=== PATIENT | female | born 1980 | race Caucasian/White ===

== ENCOUNTER → 2023-12-20 16:28 | Outpatient (REF) | payer OTHER, SELFPAY | LOC: WDC 16:28 | PROVIDERS: ATTENDING PHYSICIAN Obstetrics & Gynecology Gynecology; FAMILY PHYSICIAN Family Medicine | DX: Z12.31 Encounter for screening mammogram for malignant neoplasm of breast (principal) | CPT/HCPCS: 77063; 77067 ==

== ENCOUNTER 2024-02-26 06:21 | Inpatient (IN) | payer OTHER, SELFPAY ==
[2024-02-26] VITALS (9 sets, daily range): BP systolic 124–144; BP diastolic 82–95; BMI 42.0
--- NOTE | 2024-02-26 04:24 | ED.GENMED ---
History of Present Illness
<JOS Naranjo - Last Filed: 02/26/24 04:37>
General
Chief Complaint: Chest Problem
Source: patient
Exam Limitations: none
Time Seen by Provider: 02/26/24 04:00
Travel History
Have you had any contact with someone who has COVID-19?: No
Do you have any symptoms of coronavirus? Fever > 100 degrees, chills, cough, shortness of breath, sore throat, loss of taste or smell, muscle aches, or headache?: No
History of Present Illness
History of Present Illness:
44 YO F with a PMH of ablation 05/2020, HBP, and asthma presenting here today with complaints of constant mid-sternal chest pain x 1.5 hours. Pt reports the CP started at 3 AM, suddenly waking her up from her sleep. She did not take any medication
before getting to the hospital. She describes the chest pain as sharp with radiation to the left side of her neck, right shoulder, and right side of her back. Pt states sitting up does not make the pain better. Pt admits to associated diaphoresis
over her forehead and SOB. She reports pain with deep breaths. She also complains of some indigestion.
Positive family history of [place] in her father who and HBP and inappropriate sinus tachycardia in her mother (and herself).
Denies N,V or diarrhea. Denies smoking, alcohol, and drug use. Denies abdominal pain.
Past History
<JOS Naranjo - Last Filed: 02/26/24 04:37>
Past History
ED Past Medical History: HTN, Valvular disease (mild mitrla valve regurgitation) and Other (Migraines)
ED Past Surgical History: Appendectomy
Social History
Tobacco: Non-smoker
Alcohol: Occasional
Personal:
Living: with family
Employment: Employed
Family History
Family History: Hypertension; Negative Diabetes, Early CAD, CAD, Asthma or Cancer
Review of Systems
<ST Jose AME - Last Filed: 02/26/24 04:37>
Review of Systems
Constitutional: Reports no symptoms
EENT: Reports no symptoms
Respiratory: Reports trouble breathing
Cardiac: Reports chest pain and diaphoresis
ABD/GI: Reports no symptoms
: Reports no symptoms
Musculoskeletal: Reports no symptoms
Skin: Reports no symptoms
Neurological: Reports no symptoms
Phy Exam
<ST Jose AME - Last Filed: 02/26/24 04:37>
Physical Exam
Physical Exam:
Tachycardic, Breath sounds are equal b/l, (-) abdominal pain
General Physical Exam
General Presentation: mild distress
General age: appears stated age
General Habitus: normal
General Mental: alert
Cardiovascular Exam
Cardiovascular Exam: tachycardia
Pulmonary Exam
Pulmonary Exam: lungs clear, no rales, no crackles and no wheezing
Cough: no cough
Gastrointestinal Exam
Gastrointestinal Exam: non tender, soft and non distended
Musculoskeletal Exam
Musculoskeletal Exam: neck pain
Psychiatric Exam
Psychiatric Exam: normal mood/affect
Scores
<Caleb Savage DO - Last Filed: 02/26/24 06:00>
PE Wells Score
Symptoms of DVT: No
No alternative diagnosis better explains the illness: No
Tachycardia with pulse > 100: No
Immobilization (>=3 days) or surgery within previous 4 weeks: No
Prior history of DVT or pulmonary embolism: No
Presence of hemoptysis: No
Presence of malignancy: No
Pulmonary Embolism Risk Score: 0
Probability of PE: Pt is low risk
Course
<JOS Naranjo - Last Filed: 02/26/24 04:37>
Orders/Labs/Results
Orders:
Orders
02/26/24 03:58
Electrocardiogram (*1) Urgent
Reason for Study: Other
Other Reason for Exam: RIGHT CHEST PAIN
02/26/24 03:59
EKG- Treatment ONCE
02/26/24 04:00
Test Result ONCE
02/26/24 04:22
Complete Blood Count/With Diff Urgent
Comprehensive Metabolic Panel Urgent
D-Dimer Urgent
HCG, Serum Qualitative Screen Urgent
NT-proBNP Urgent
PTT Urgent
Prothrombin Time Urgent
Troponin I Urgent
02/26/24 05:[address] See Dose Instructions PO NOW STA
Discontinue all Active Warfarin orders?: Yes
02/26/24 05:[address] Non Medication Order As Directed
Physician Order: PTT 6 hours after initial start of Heparin infusion
02/26/24 05:45
Heparin 32031 Units/250 ml 25,000 units in 250 ml IV PER PROTOCOL
Weight to be used for heparin protocol in kilograms (kg):: 118
Protocol:: DVT/PE
PTT Goal Range to be used:: PTT 73 to 111 seconds
Order type:: Initial
INITIAL Infusion Dose (UNITS/KG/hr) & then follow protocol:: 18 units/kg/hr
Infusion Dose in UNITS/hr & then follow protocol (UNITS/hr):: 2,000
INFUSION RATE in mL/hr & then follow protocol (mL/hr):: 20
For DVT/PE algorithm, re-bolus for low PTT?: Yes
PTT less than or equal to 64 seconds:: Re-bolus 80 units/kg (max 10,000units). Increase by 500 units/hr
(+ 5mL/hr)
PTT 64.1 to 72.9 seconds:: Re-bolus 40 units/kg (max 5,000 units). Increase by 200 units/hr
(+ 2mL/hr)
PTT 73 to 111 seconds:: Target Range. No change in rate.
PTT 111.1 to 130.9 seconds:: Decrease rate by 200 units/hr (- 2 mL/hr)
PTT 131 to 199.9 seconds:: HOLD for 1 hr. Then decrease by 400 units/hr (- 4mL/hr)
PTT greater than or equal to 200 seconds:: HOLD for 2 hrs & Notify Provider. Then decrease by 500 units/hr
(- 5mL/hr)
Lab follow-up:: Each change, PTT q6h until 2 consecutive are therapeutic. Then
PTT daily.
02/26/24 06:[address] See Dose Instructions IV DIRECTED
Abnormal Lab Results
02/26/24
04:22
Hct 35.5 L %
(37.0-47.0)
MPV 10.6 H fL
(7.4-10.4)
D-Dimer 1.23 H ug/mlFEU
(0.00-0.50)
BUN 23 H mg/dl
(7-17)
Creatinine 0.5 L mg/dL
(0.6-1.0)
02/26/24 04:22
02/26/24 04:22
Vital Signs
Initial and Last Documented VS:
Initial Vital Signs
Temp Pulse Resp BP Pulse Ox
98 F 78 22 144/82 99
02/26/24 03:54 02/26/24 03:54 02/26/24 03:54 02/26/24 03:54 02/26/24 03:54
Last Documented Vital Signs
Temp Pulse Resp BP Pulse Ox
98 F 78 22 144/82 99
02/26/24 03:54 02/26/24 03:54 02/26/24 03:54 02/26/24 03:54 02/26/24 04:28
<Caleb Savage DO - Last Filed: 02/26/24 06:00>
Orders/Labs/Results
Orders:
Orders
02/26/24 03:58
Electrocardiogram (*1) Urgent
Reason for Study: Other
Other Reason for Exam: RIGHT CHEST PAIN
02/26/24 03:59
EKG- Treatment ONCE
02/26/24 04:00
Test Result ONCE
02/26/24 04:22
Complete Blood Count/With Diff Urgent
Comprehensive Metabolic Panel Urgent
D-Dimer Urgent
HCG, Serum Qualitative Screen Urgent
NT-proBNP Urgent
PTT Urgent
Prothrombin Time Urgent
Troponin I Urgent
02/26/24 05:[address] See Dose Instructions PO NOW STA
Discontinue all Active Warfarin orders?: Yes
02/26/24 05:[address] Non Medication Order As Directed
Physician Order: PTT 6 hours after initial start of Heparin infusion
02/26/24 05:45
Heparin 34137 Units/250 ml 25,000 units in 250 ml IV PER PROTOCOL
Weight to be used for heparin protocol in kilograms (kg):: 118
Protocol:: DVT/PE
PTT Goal Range to be used:: PTT 73 to 111 seconds
Order type:: Initial
INITIAL Infusion Dose (UNITS/KG/hr) & then follow protocol:: 18 units/kg/hr
Infusion Dose in UNITS/hr & then follow protocol (UNITS/hr):: 2,000
INFUSION RATE in mL/hr & then follow protocol (mL/hr):: 20
For DVT/PE algorithm, re-bolus for low PTT?: Yes
PTT less than or equal to 64 seconds:: Re-bolus 80 units/kg (max 10,000units). Increase by 500 units/hr
(+ 5mL/hr)
PTT 64.1 to 72.9 seconds:: Re-bolus 40 units/kg (max 5,000 units). Increase by 200 units/hr
(+ 2mL/hr)
PTT 73 to 111 seconds:: Target Range. No change in rate.
PTT 111.1 to 130.9 seconds:: Decrease rate by 200 units/hr (- 2 mL/hr)
PTT 131 to 199.9 seconds:: HOLD for 1 hr. Then decrease by 400 units/hr (- 4mL/hr)
PTT greater than or equal to 200 seconds:: HOLD for 2 hrs & Notify Provider. Then decrease by 500 units/hr
(- 5mL/hr)
Lab follow-up:: Each change, PTT q6h until 2 consecutive are therapeutic. Then
PTT daily.
02/26/24 06:[address] See Dose Instructions IV DIRECTED
Abnormal Lab Results
02/26/24
04:22
Hct 35.5 L %
(37.0-47.0)
MPV 10.6 H fL
(7.4-10.4)
D-Dimer 1.23 H ug/mlFEU
(0.00-0.50)
BUN 23 H mg/dl
(7-17)
Creatinine 0.5 L mg/dL
(0.6-1.0)
02/26/24 04:22
02/26/24 04:22
Vital Signs
Initial and Last Documented VS:
Initial Vital Signs
Temp Pulse Resp BP Pulse Ox
98 F 78 22 144/82 99
02/26/24 03:54 02/26/24 03:54 02/26/24 03:54 02/26/24 03:54 02/26/24 03:54
Last Documented Vital Signs
Temp Pulse Resp BP Pulse Ox
98 F 78 22 144/82 99
02/26/24 03:54 02/26/24 03:54 02/26/24 03:54 02/26/24 03:54 02/26/24 04:28
<JOS Naranjo - Last Filed: 05/28/24 04:37>
MDM/Problems Addressed
Differential Diagnosis Includes:
STEMI vs. NSTEMI, Pericarditis, Vasospastic angina, Unstable vs. stable angina
MDM/Problems Addressed:
Chest pain x 1.5 hour
Chronic conditions affecting care: HTN and Asthma
<JOS Naranjo - Last Filed: 02/26/24 04:37>
*Critical Care Note
Total Time (30-74mins, 75-104mins- exclusive of procedures): Not Applicable
ED Attending Note
<JOS Naranjo - Last Filed: 02/26/24 04:37>
-
Portions of this chart may have been created with voice recognition software.� Occasional wrong word or��sound alike� substitutions may have occurred due to the inherent limitations of voice recognition software.
<Caleb Savage DO - Last Filed: 02/26/24 06:00>
ED Attending Note
Patient seen and examined by attending physician: Yes
I performed the substantive portion of visit, reviewed & personally made and approve the management plan that is documented in note by myself or SIMEON.: Yes
ED Attending Note:
44-year-old female presents with sudden onset right-sided chest pain with accompanying shortness of breath. She states that awakened her from sleep 3 AM. Patient states that she did not take any medications to alleviate or exacerbate her symptoms.
Patient reports that the pain radiates to the left side of her neck and through to her back. She reports nothing she has done alleviated or exacerbated her pain. Patient did feel some diaphoresis when her shortness of breath was at its worst.
Patient was seen in conjunction with the PA student. I have reviewed and agree with the history and treatment plan presented. On my independent physical exam, patient is awake, alert, and oriented x3. Heart is regular rate and rhythm. Lungs are
clear to auscultation bilaterally. There is no chest wall tenderness. Abdomen is soft nontender nondistended. Negative Soriano sign. Negative for Law's point tenderness. Moves all 4 extremities. Skin is warm and dry at time of exam.
Vital signs are stable. Patient not hypoxic
Nursing note reviewed. I agree with nursing documentation up to this point in time.
Home Meds and allergies reviewed.
NUMBER AND COMPLEXITY OF PROBLEMS ADDRESSED AT THE ENCOUNTER
� Chronic conditions affecting care: Hypertension, mitral valve regurg, migraines,
� Acute Exacerbation and/or Progression of Chronic Illness: This is an acute problem
� Differential Diagnosis includes: PE, pneumonia, musculoskeletal pain, non-STEMI
AMOUNT AND/OR COMPLEXITY OF DATA TO BE REVIEWED AND ANALYZED
I performed an independent evaluation of the following and my interpretation is:
EKG: Normal sinus rhythm rate of 78 with normal intervals, normal axis. No evidence of acute ischemia present. When compared with previous EKG, sinus rhythm has replaced atrial fibrillation.
CT: Patient gets anaphylaxis from IV dye. She cannot sustain contrast to get a PE study.
X-rays:
Ultrasound:
Laboratory Studies: D-dimer is elevated.
Other:
Review of other/old records:
Clinical information was obtained by an independent historian:
Prescriptions/Medications Considered but not given:
Further testing considered but not performed:
RISK OF COMPLICATIONS AND/OR MORBIDITY OR MORTALITY OF PATIENT MANAGEMENT
Social determinants of health affecting care: Good Social Support
Discussion with other providers: Hospitalist for admission. She will get prophylactically heparinized for high index of suspicion for pulmonary embolism. VQ scan pending
Escalation of care including admission/observation vs risk of discharge considered:
CRITICAL CARE NOTE:
Total Time (exclusive of procedures):
Update:
Discharge Plan
Departure
Patient Disposition: Admit
Date of Disposition: 02/26/24
Time of Disposition: 05:41
Presentation/result/management discussed w/ accepting MD/DO: Hospitalist
Condition: Good
Discharge Problem:
Acute dyspnea, Chest pain, D-dimer, elevated
Prescriptions:
No Action
diphenhydramine HCl [Benadryl] 25 MG capsule
50 mg PO PRN PRN (Reason: allergic reactions)
ibuprofen 600 MG tablet
600 mg PO Q6HPRN PRN (Reason: moderate pain/cramps) Qty: 0 0RF
cyanocobalamin (vitamin B-12) 1,000 MCG tablet
1,000 mcg PO DAILY
epinephrine [EpiPen] 0.3 MG/0.3/SYRINGE auto-injector
0.3 mg IM PRN PRN (Reason: allergic reaction)
loratadine 10 MG tablet
10 mg PO DAILY
folic acid 0.8 MG capsule
0.8 mg PO DAILY
cholecalciferol (vitamin D3) 1,000 UNITS tablet
1,000 units PO DAILY
magnesium oxide 500 MG capsule
500 mg PO DAILY
turmeric root extract 500 MG capsule
1,000 mg PO DAILY
Yamilex 200 MG Tab
200 mg PO DAILY
Iron 18 MG Tab
18 mg PO DAILY
Referrals:
Jacy Simpson MD [Family Provider] -
Interventions
Interventions:
*Risk Screen - Suicide Last Done: 02/26/24 03:54
*General Assessment Last Done: 02/26/24 04:30
*Neglect/Abuse Screening Last Done: 02/26/24 03:54
*ED COVID-19 Vaccine History Last Done: 02/26/24 04:29
ED- Cardiac Assessment Last Done: 02/26/24 04:26
ED- Pulmonary Assessment Last Done: 02/26/24 04:28
Discharge Date and Time
Print Language: KISWAHILI
[2024-02-26 04:28] LABS: % Basophils 0.4 % (0-2); % Immature Granulocytes 0.1 % (0-0.5); % Lymphocytes 23.5 % (20.5-51.1); % Monocytes 7.5 % (1.7-9.3); % Neutrophils 64.5 % (42.2-75.2); Absolute Eosinophils 0.3 10^3/uL (0-0.7); Absolute Lymphocytes 1.9 10^3/uL (1.2-3.4); Absolute Monocytes 0.6 10^3/uL (0.1-0.6); Absolute Neutrophils 5.2 10^3/uL (1.4-6.5); Hematocrit 35.5 % (37.0-47.0); Hemoglobin 12.7 g/dL (12.0-16.0); Mean Corp Hgb Conc. 35.8 g/dL (33.0-37.0); Mean Corpuscular Hgb 30.2 pg (27.0-31.0); Mean Corpuscular Volume 84.3 fL (81.0-99.0); Mean Platelet Volume 10.6 fL (7.4-10.4); Nucleated Red Blood Cells % 0 %; Platelet Count 223 10^3/uL (130-400); Red Blood Cell Count 4.21 10^6/uL (4.20-5.40); Red Cell Dist. Width 12.8 % (11.5-14.5)
[2024-02-26 04:41] LABS: HCG, Serum Qualitative Screen Negative
[2024-02-26 04:43] LABS: INR 1.07; PT 13.7 Sec (11.4-14.6)
[2024-02-26 04:44] LABS: ALT (SGPT) 16 U/L (0-35); APTT 28.8 Sec (23.4-35.0); AST (SGOT) 18 U/L (14-36); Albumin 3.6 g/dl (3.5-5.0); Alkaline Phosphatase 71 U/L (38-126); Blood Urea Nitrogen 23 mg/dl (7-17); Calcium 9.2 mg/dl (8.4-10.2); Carbon Dioxide 23 mmol/L (22-30); Chloride 105 mmol/L (98-107); Estimated Creatinine Clearance > 125 ml/min; Glucose 93 mg/dl (70-99); Potassium 3.9 mmol/L (3.5-5.1); Sodium 136 mmol/L (135-145); Total Bilirubin 0.6 mg/dl (0.2-1.3); Total Protein 6.4 g/dl (6.3-8.2); eGFR > 60.00
[2024-02-26 04:46] LABS: D-Dimer 1.23 ug/mlFEU (0.00-0.50)
[2024-02-26 04:53] LABS: NT-proBNP 179 pg/ml; Troponin I < 0.012 ng/ml
--- NOTE | 2024-02-26 06:03 | HPS.HSE ---
Family Physician
-
Family Physician: Jacy Simpson
Chief Complaint
-
CP
History of Present Illness
44F PMH of ablation 05/2020, HTN, Asthma HX numerous allergy including anaphylaxin vs ZEN reaction to IV I2 contrast as childhood seen at ER for evaluation of CP
CP
- abrupt onset that woke her up from the sleep
- at Rt sided and mid sternum
- worse with deep breathing
- No prior HX DVT
- Elevated D Dimer
- HX B/l THR >1 yr ago
Reports b/l thigh pain
No asymmetrical swelling
Medical History
Past Medical History
Past Medical History: Reports HTN and Other ( Valvular disease (mild mitrla valve regurgitation) and Other (Migraines)
Past Surgical History: Reports Cardiac (ablation )
Social History
Tobacco: Non-smoker
Alcohol: Occasional
Personal:
Living: With Family
Family History
Family History: Not pertinent
Allergies / Home Medications
Allergies reflects when Allergies were last updated in [facility].
Home Medications with original date entered in [facility]
Allergy/Medication List:
Allergies
Allergy/AdvReac Type Severity Reaction Status Date / Time
avocado Allergy Anaphylaxis Verified 02/26/24 03:58
banana Allergy Anaphylaxis Verified 02/26/24 03:58
carrot Allergy Anaphylaxis Verified 02/26/24 03:58
cefaclor [From Ceclor] Allergy Anaphylaxis Verified 02/26/24 03:58
celery Allergy Throat Verified 02/26/24 03:58
swelling
cephalexin Allergy Anaphylaxis Verified 02/26/24 03:58
Cephalosporins Allergy Anaphylaxis Verified 02/26/24 03:58
erythromycin base Allergy Anaphylaxis Verified 02/26/24 03:58
iodine [Iodine] Allergy Anaphylaxis Verified 02/26/24 03:58
latex [Latex] Allergy Swelling Verified 02/26/24 03:58
Penicillins Allergy Anaphylaxis Verified 02/26/24 03:58
Shellfish *RETIRED-06/18/12 Allergy Anaphylaxis Verified 02/26/24 03:58
[Shellfish]
Sulfa (Sulfonamide Allergy Anaphylaxis Verified 02/26/24 03:58
Antibiotics)
all red fruit Allergy Anaphylaxis Uncoded 02/26/24 03:58
apples Allergy Mouth Uncoded 02/26/24 03:58
Swelling,
localized
swelling
with
contact
berries Allergy Tongue Uncoded 02/26/24 03:58
Swelling
cherries Allergy tongue Uncoded 02/26/24 03:58
swelling-
localized
swelling
with
contact
figs Allergy Anaphylaxis Uncoded 02/26/24 03:58
MULTIPLE FRUITS Allergy Diarrhea Uncoded 02/26/24 03:58
NUTS Allergy Anaphylaxis Uncoded 02/26/24 03:58
peanuts Allergy Anaphylaxis Uncoded 02/26/24 03:58
PICKELS Allergy Swelling Uncoded 02/26/24 03:58
POTATO Allergy Swelling Uncoded 02/26/24 03:58
SEAFOOD Allergy Anaphylaxis Uncoded 02/26/24 03:58
TOMATOE DERIVATIVES Allergy Anaphylaxis Uncoded 02/26/24 03:58
tomatoes Allergy Anaphylaxis Uncoded 02/26/24 03:58
tree nuts Allergy Anaphylaxis Uncoded 02/26/24 03:58
Home Medications
diphenhydramine HCl 25 mg capsule (Benadryl) 50 mg PO PRN PRN allergic reactions 09/29/14
ibuprofen 600 mg tablet 600 mg PO Q6HPRN PRN moderate pain/cramps ##0 10/01/14
Yamilex 200 mg PO DAILY 04/29/20
Iron 18 mg PO DAILY 04/29/20
cholecalciferol (vitamin D3) 25 mcg (1,000 unit) tablet 1,000 units PO DAILY 04/29/20
cyanocobalamin (vitamin B-12) 1,000 mcg tablet 1,000 mcg PO DAILY 04/29/20
epinephrine 0.3 mg/0.3 mL injection, auto-injector (EpiPen) 0.3 mg IM PRN PRN allergic reaction 04/29/20
folic acid 0.8 mg capsule 0.8 mg PO DAILY 04/29/20
loratadine 10 mg tablet 10 mg PO DAILY 04/29/20
magnesium oxide 500 mg capsule 500 mg PO DAILY 04/29/20
turmeric root extract 500 mg capsule 1,000 mg PO DAILY 04/29/20
Review of Systems
-
Constitutional: Reports No Symptoms
EENT: Reports No Symptoms
Respiratory: Reports No Symptoms; Denies Cough or Trouble Breathing
Cardiac: Reports Chest Pain; Denies Diaphoresis or Palpitations
Abdomen/GI: Reports No Symptoms
: Reports No Symptoms
Musculoskeletal: Reports No Symptoms
Skin: Reports No Symptoms
Neurological: Reports No Symptoms
Endocrine: Reports No Symptoms
Hematologic/Lymphatic: Reports No Symptoms
Psych: Reports No Symptoms
Physical Exam
Vital Signs
Vital Signs
Temp Pulse Resp BP Pulse Ox
98 F 74 21 140/94 99
02/26/24 03:54 02/26/24 05:45 02/26/24 05:45 02/26/24 05:00 02/26/24 05:45
Physical Exam
General: Well Developed, No Apparent Distress, Comfortable and Conversant
HEENT: NormoCephalic and Moist mucous membranes
Respiratory: Clear
Cardiac: S1/S2 and Regular Rhythm
GI: Soft, Non Tender, Non Distended and Normal Bowel Sounds
Musculoskeletal: No Edema
Skin: Warm and Dry
Neuro: AO x 3
Psych: Calm
Laboratory Results
-
02/26/24 04:22
02/26/24 04:22
Laboratory Results
PT 13.7 Sec (11.4-14.6) 02/26/24 04:22
INR 1.07 02/26/24 04:22
APTT 28.8 Sec (23.4-35.0) 02/26/24 04:22
Total Bilirubin 0.6 mg/dl (0.2-1.3) 02/26/24 04:22
AST 18 U/L (14-36) 02/26/24 04:22
ALT 16 U/L (0-35) 02/26/24 04:22
Alkaline Phosphatase 71 U/L (38-126) 02/26/24 04:22
Troponin I < 0.012 ng/ml 02/26/24 04:22
Data Reviewed
-
Lab Data: Labs Reviewed by me
Old Records: Reviewed
Impression/Plan
-
Reviewed VS: afebrile HR 78 BP 145/80 RR 22 POx 99 %
Wt 118 kg
PE Wells Score
Symptoms of DVT: No
No alternative diagnosis better explains the illness: No
Tachycardia with pulse > 100: No
Immobilization (>=3 days) or surgery within previous 4 weeks: No
Prior history of DVT or pulmonary embolism: No
Presence of hemoptysis: No
Presence of malignancy: No
Pulmonary Embolism Risk Score: 0
Probability of PE: Pt is low risk
Data
unremarkable CBC
unremarkable CMP
DD 1.23
NEG TPNI
pro BNP 179
EKG:
NORMAL SINUS RHYTHM
LOW VOLTAGE QRS
CANNOT RULE OUT ANTERIOR INFARCT , AGE UNDETERMINED
ABNORMAL ECG
WHEN COMPARED WITH ECG OF 04-APR-2018 22:19,
SINUS RHYTHM HAS REPLACED ATRIAL FIBRILLATION
VENT. RATE HAS DECREASED BY 39 BPM
NONSPECIFIC T WAVE ABNORMALITY NO LONGER EVIDENT IN LATERAL LEADS
ASSESSMENT & PLAN
Acute pleuritic quality CP
Significantly elevated D Dimer of unclear significance
HX Anaphylaxis with Iodine contrast and shell fish
- PE Well score: low probability
- VQ scan
- US Legs
- Empiric Heparin gtt
- Held NSAIDs for now
- Pul consult
Morbid obesity - class II
HX ablation 05/2020
hi BP but not on any meds
HX Asthma
DVT Px: Heparin gtt
Code: Full
IP TLM
[2024-02-26] MEDS: HEPARIN 25000 UNITS/250 ML IV (07:00)
[2024-02-26] MEDS: INDERAL 20 MG PO (09:55)
--- NOTE | 2024-02-26 11:03 | CM ---
Chart reviewed. Patient is independent of ADLS, lives with her children in a 3 [address], 2 SONI, 0 DME. Patient currently with no discharge needs. Plan is for the patient to return home. CM to follow
--- NOTE | 2024-02-26 11:07 | PTCARENOTE ---
Received patient from the ED this morning on IV heparin at 2000 units/hr. Oriented to the room and plan of care, admission assessment completed. Patient is 99% on RA, lungs are clear but states she has a banding sensation across her chest which she
states increases with deep inspiration. Patient waiting for lung scan and ultrasound. Call doherty at the bedside, SR on the monitor.
--- NOTE | 2024-02-26 11:23 | W.PN.UPDATE ---
Update Note
Progress Note Update
Nonbillable note
Briefly seen and examined
Continue to asthma right lower rib cage pain.
Chest x-ray ordered to rule out any pulmonary parenchymal problems
VQ scan pending
Lower extremity venous Doppler pending
Maintain on empiric heparin drip until clot rule out
Cardiac enzymes negative. EKG showing some T wave inversion in V1 flattening of V2 V3 waves.
[2024-02-26 15:22] LABS: APTT 70.6 Sec (23.4-35.0)
--- NOTE | 2024-02-26 17:18 | PTCARENOTE ---
All testing negative, IV heparin discontinued and patient for discharge home. Dr. Arndt telephoned patient and spoke to her regarding her results. Reviewed discharge instructions and patient discharged home.
--- NOTE | 2024-02-27 07:45 | W.DCSUMMARY ---
Discharge Summary
Discharge Data
Date of Admission: 02/26/24
Date of Discharge: 02/26/24
-
Pending Results: No
Hospital Course
Discharging Physician : Dr Leandro Arndt
Disposition : To home
Primary care physician : Dr Jacy Simpson
Principal Discharge diagnosis :
Right lower rib cage pain, likely musculoskeletal
Chronic Discharge diagnosis :
Multiple antibiotic allergies
History of migraine
Left knee medial meniscal tear
History of palpitation
Obesity
History of inappropriate sinus tachycardia
Hospital Course :
Patient is a 44-year-old female with above-mentioned past medical history came to ER with new onset of right lower rib cage pain. Patient was also having some radiation to the sternum. No associated nausea/diaphoresis/palpitation. Patient came to
ER for further evaluation. In ER D-dimers were checked and was found to be elevated. As patient is allergic to iodinated contrast material patient underwent VQ scan following day which ruled out any PE. Lower extremity venous Doppler was negative
for clot as well. Chest x-ray done and did not show any atelectasis/pneumonia or any other changes in right lower lobe. Clinically symptoms felt to be musculoskeletal related. No associated signs suggestive liver/gallbladder issues. Patient was
discharged home at this point with follow-up with family physician.
Important imaging findings :
None
Procedure findings :
None
Discharge Plan
-
Patient Disposition: Home (Routine Discharge)
Discharge Diagnosis/Procedures: Right sided chest pain - likely pleuritic vs musculoskeletal pain
Condition: Fair
Diet: Regular
Activity: As tolerated
Driving Restrictions: As prior to admission
Bathing Restrictions: OK to Shower
Referrals:
Jacy Simpson MD [Family Provider] - in one week
Prescriptions:
Continued
meloxicam 15 mg Tablet
15 mg PO DAILY
propranolol 20 mg Tablet
20 mg PO BID
Nurtec ODT 75 mg Tablet,Disintegrating
75 mg PO DAILYPRN PRN (Reason: mirgraine)
Patient Comments:
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
Discharge Orders:
Discharge Patient (As Directed); Ordered 02/26/24
Ordered By: Leandro Arndt
Care Plan Goals
Care Plan Goals:
Problem: Readiness for enhanced knowledge related to diagnosis and treatment plan
Goal: Understand your diagnosis and treatment plan needs, including medications if applicable.
Instructions: Know your diagnosis, underlying causes and treatment plan options, including medications if applicable. Consult with your health care team to learn about your diagnosis and treatment plan, including medications if applicable.
Discharge Date and Time
Discharge Date/Time: 02/26/24 17:26
Print Language: GUINEAN
== END 2024-02-26 17:26 | disposition home or self-care (01) | DRG 313 ==
LOC: IVU 06:21
PROVIDERS: ADMITTING PHYSICIAN Internal Medicine; ATTENDING PHYSICIAN Hospitalist; EMERGENCY PHYSICIAN Student in an Organized Health Care Education/Training Program; FAMILY PHYSICIAN Family Medicine
DX: R07.2 Precordial pain (principal); Z68.41 Body mass index [BMI] 40.0-44.9, adult; R07.89 Other chest pain; J45.909 Unspecified asthma, uncomplicated; R61 Generalized hyperhidrosis; K30 Functional dyspepsia; G43.909 Migraine, unspecified, not intractable, without status migrainosus; E66.01 Morbid (severe) obesity due to excess calories; I10 Essential (primary) hypertension; I34.0 Nonrheumatic mitral (valve) insufficiency; M79.651 Pain in right thigh; M79.652 Pain in left thigh; Z82.49 Family history of ischemic heart disease and other diseases of the circulatory system; Z91.041 Radiographic dye allergy status; Z88.1 Allergy status to other antibiotic agents; Z91.040 Latex allergy status; Z91.018 Allergy to other foods; Z91.010 Allergy to peanuts; Z88.0 Allergy status to penicillin; Z91.013 Allergy to seafood; Z88.2 Allergy status to sulfonamides
CPT/HCPCS: 71046; 78582; 80053; 83880; 84484; 84703; 85025; 85379; 85610; 85730; 93005; 93970; 96374; 99285; A9540; A9567

== ENCOUNTER 2024-04-12 18:27 | Emergency (ER) | payer OTHER, SELFPAY ==
[2024-04-12 18:37] VITALS: BP 149/104
[2024-04-12 20:19] VITALS: BP 110/71
[2024-04-12] MEDS: TYLENOL 1000 MG PO (20:29)
[2024-04-12] MEDS: NSS 1000 IV (20:29)
[2024-04-12 20:38] LABS: % Basophils 0.3 % (0-2); % Eosinophils 0.8 % (0-6); % Immature Granulocytes 0.3 % (0-0.5); % Lymphocytes 6.5 % (20.5-51.1); % Monocytes 10.1 % (1.7-9.3); Absolute Lymphocytes 0.2 10^3/uL (1.2-3.4); Absolute Monocytes 0.4 10^3/uL (0.1-0.6); Hemoglobin 10.4 g/dL (12.0-16.0); Mean Corp Hgb Conc. 34.7 g/dL (33.0-37.0); Mean Corpuscular Hgb 29.4 pg (27.0-31.0); Mean Corpuscular Volume 84.7 fL (81.0-99.0); Mean Platelet Volume 10.6 fL (7.4-10.4); Nucleated Red Blood Cells % 0 %; Platelet Count 307 10^3/uL (130-400); Red Blood Cell Count 3.54 10^6/uL (4.20-5.40); Red Cell Dist. Width 12.2 % (11.5-14.5); White Blood Cell Count 3.7 10^3/uL (4.8-10.8)
[2024-04-12 20:45] LABS: Urine Albumin Negative (Neg - Trace); Urine Bilirubin 1+ (Negative); Urine Character Clear (Clear); Urine Color Yellow; Urine Glucose Negative (Negative); Urine Ketone 2+ (Negative); Urine Leukocyte Negative (Negative); Urine Nitrite Negative (Negative); Urine Occult Blood Negative (Negative); Urine Specific Gravity 1.015 (<1.030); Urine Urobilinogen Negative (Neg - 1+)
[2024-04-12 20:47] LABS: Lactic Acid 1.6 mmol/L (0.7-2.0)
[2024-04-12 20:49] LABS: ALT (SGPT) 17 U/L (0-35); AST (SGOT) 24 U/L (14-36); Albumin 4.1 g/dl (3.5-5.0); Alkaline Phosphatase 66 U/L (38-126); Blood Urea Nitrogen 15 mg/dl (7-17); Calcium 9.7 mg/dl (8.4-10.2); Carbon Dioxide 26 mmol/L (22-30); Chloride 103 mmol/L (98-107); Glucose 103 mg/dl (70-99); Potassium 3.7 mmol/L (3.5-5.1); Sodium 139 mmol/L (135-145); Total Protein 6.7 g/dl (6.3-8.2); eGFR > 60.00
[2024-04-12 20:56] LABS: COVID-19 Antigen Negative (Negative)
[2024-04-12 21:15] VITALS: BP 98/62
--- NOTE | 2024-04-12 21:39 | ED.GENMED ---
History of Present Illness
General
Chief Complaint: Fever
Time Seen by Provider: 04/12/24 19:42
History of Present Illness
History of Present Illness:
44-year-old female with history of hip dysplasia and osteoarthritis status post bilateral hip replacement (R-hip revision 03/25 at [place]), hyperlipidemia, baseline tachycardia on propranolol presenting to the emergency department for fever and
cough. Patient reports symptoms for the past 2 days. Notes generalized congestion. Reports some tightness in her chest. Went to urgent care prior to arrival, was given ibuprofen and breathing treatment, reports some improvement of her symptoms.
She talked to her orthopedic surgeon, advised to come to the hospital given that she is postop. Denies any issues with her incision, no drainage, no redness, no increased pain. She is still nonweightbearing. Cough has been nonproductive. Denies
any known sick contacts. She reports that she had COVID in the past and symptoms feel very similar to COVID infection. Also notes history of pneumonia in the past. Denies abdominal pain or GI symptoms. Denies additional acute medical complaints.
Past History
Past History
ED Past Medical History: HTN, Valvular disease (mild mitrla valve regurgitation) and Other (Migraines)
ED Past Surgical History: Appendectomy
Social History
Tobacco: Non-smoker
Alcohol: Occasional
Personal:
Living: with family
Employment: Employed
Family History
Family History: Hypertension; Negative Diabetes, Early CAD, CAD, Asthma or Cancer
Phy Exam
Physical Exam
Physical Exam:
General: Well-appearing, no clinical signs of dehydration, nontoxic and in no acute distress
HEENT: protecting airway
Neck: appears supple
CV: Tachycardic, regular rhythm, no evidence of cyanosis
Resp: No accessory muscle use, no increased work of breathing, lungs clear to auscultation bilaterally
Abd: Soft and non-distended, no tenderness to palpation, normal bowel sounds
Extremities: Status post right hip replacement, vertical incision without erythema or warmth, no drainage. No tenderness on palpation. Range of motion to the hip intact
Neuro: alert, no focal neurologic deficit
: deferred
Rectal: deferred
Psych: Normal affect
Skin: Intact
Course
Orders/Labs/Results
Orders:
Orders
04/12/24 18:44
EKG [Electrocardiogram (*1)] Urgent
Reason for Study: Tachycardia
EKG- Treatment ONCE
04/12/24 20:13
0.9% Sodium Chloride 1000 ml [Nss] 1,000 ml IV BOLUS
Acetaminophen [Tylenol] 1,000 mg PO NOW STA
04/12/24 20:14
CR Chest - 2 Views Urgent
Comment:
Reason For Exam: cough, fever
04/12/24 20:22
COVID-19 Antigen Urgent
Source: Nasal Swab
Complete Blood Count/With Diff Urgent
Comprehensive Metabolic Panel Urgent
Urinalysis Reflex To Culture Urgent
Date Specimen was Collected: 04/12/24
Time Specimen was Collected: 20:20
Blood Culture Urgent
RAJWINDER Source: Blood/Venous
Specimen Description:
Influenza A+B Rapid Molecular Urgent
RAJWINDER Source: Nasal Swab
Specimen Description:
04/12/24 20:24
Lactate Level [Lactic Acid] Urgent
04/12/24 22:21
Doxycycline [Vibramycin] 100 mg PO NOW STA
Abnormal Lab Results
04/12/24
20:22
WBC 3.7 L 10^3/uL
(4.8-10.8)
RBC 3.54 L 10^6/uL
(4.20-5.40)
Hgb 10.4 L g/dL
(12.0-16.0)
Hct 30.0 L %
(37.0-47.0)
MPV 10.6 H fL
(7.4-10.4)
Absolute Lymphs (auto) 0.2 L 10^3/uL
(1.2-3.4)
Neutrophils % 82.0 H %
(42.2-75.2)
Lymphocytes % 6.5 L %
(20.5-51.1)
Monocytes % 10.1 H %
(1.7-9.3)
Glucose 103 H mg/dl
(70-99)
Urine Ketones 2+ A
(Negative)
Urine Bilirubin 1+ A
(Negative)
04/12/24 20:22
04/12/24 20:22
Vital Signs
Initial and Last Documented VS:
Initial Vital Signs
Temp Pulse Resp BP Pulse Ox
100.4 F H 148 18 149/104 98
04/12/24 18:37 04/12/24 18:37 04/12/24 18:37 04/12/24 18:37 04/12/24 18:37
Last Documented Vital Signs
Temp Pulse Resp BP Pulse Ox
100.4 F H 148 18 149/104 98
04/12/24 18:37 04/12/24 18:37 04/12/24 18:37 04/12/24 18:37 04/12/24 18:37
MDM/Problems Addressed
MDM/Problems Addressed:
44-year-old female with history of tachycardia, hip dysplasia status post bilateral hip replacement with revision on 03/25, hyperlipidemia presenting for fever and cough. Vital signs on arrival significant for hypertension, tachycardia, low-grade
fever.
On exam, patient is well-appearing, nontoxic. Benign pulmonary exam. No increased work of breathing. Lungs clear to auscultation. On cardiac exam, tachycardic, however sinus. Patient notes issues with tachycardia, is currently on propranolol.
However, feel exacerbated from low-grade fever and likely underlying infection. Patient meeting SIRS criteria. Will obtain laboratory analysis and start IV fluids. Will obtain lactic acid and blood culture. Suspect source of infection is
pulmonary, COVID versus influenza versus pneumonia, recent hospitalization with possibility of hospital-acquired pneumonia. On evaluation of patient's right hip, incision appears clean/dry/intact. No drainage, no warmth. No tenderness. Low
suspicion for any joint infection. Range of motion is intact.
21:50 - Patient without leukocytosis. Lactic acid within normal limits. Blood pressure remained stable without concern for severe sepsis or septic shock. COVID and influenza negative.
22:20 -patient's vitals have normalized, normalized heart rate and blood pressure. Chest x-ray shows possible small infiltrate to the right lower lung field. Given presenting symptoms, feel patient warrants antibiotics. Will start patient on
doxycycline, multiple antibiotic allergies. Feel patient is candidate for outpatient therapy. Did briefly discuss case with on-call orthopedic doctor at [facility], in agreement that without signs of infection localized to the joint, without present
concern for joint infection. Agree with outpatient follow-up with orthopedics. Strict return precautions were communicated patient regarding her pneumonia and infection and patient verbalized understanding.
*EKG
Interpreted by ED Provider?: Yes
EKG Intrepretation Date: 04/12/24
EKG Intrepretation Time: 20:30
Interpretation: abnormal
Comparison EKG: changes noted
Heart Rate: 128
Rate: tachycardiac
Rhythm: sinus
[place]: normal axis
Interval: normal interval
QRS Pattern: normal QRS
Ischemia: non-specific ST changes
*Critical Care Note
Total Time (30-74mins, 75-104mins- exclusive of procedures): Not Applicable
ED Attending Note
-
Portions of this chart may have been created with voice recognition software.� Occasional wrong word or��sound alike� substitutions may have occurred due to the inherent limitations of voice recognition software.
Discharge Plan
Departure
Prescriptions:
No Action
meloxicam 15 mg Tablet
15 mg PO DAILY
propranolol 20 mg Tablet
20 mg PO BID
Nurtec ODT 75 mg Tablet,Disintegrating
75 mg PO DAILYPRN PRN (Reason: mirgraine)
Patient Comments:
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
Referrals:
Jacy Simpson MD [Family Provider] -
Interventions
Interventions:
*General Assessment Last Done: 04/12/24 18:37
ED- Fall Risk Assessment Last Done: 04/12/24 20:10
*ED COVID-19 Vaccine History Last Done: 04/12/24 18:37
ED- Neurological Assessment Last Done: 04/12/24 20:10
ED-Skin Assessment Last Done: 04/12/24 20:11
Discharge Date and Time
Print Language: TURKISH
[2024-04-12 22:00] VITALS: BP 96/61
[2024-04-12] MEDS: VIBRAMYCIN 100 MG PO (22:32)
== END 2024-04-12 23:09 | disposition home or self-care (01) ==
LOC: EMR 18:27
PROVIDERS: EMERGENCY PHYSICIAN Student in an Organized Health Care Education/Training Program; FAMILY PHYSICIAN Family Medicine
DX: J18.9 Pneumonia, unspecified organism (principal); E78.5 Hyperlipidemia, unspecified
CPT/HCPCS: 99285; 96360; 71046; 80053; 81003; 83605; 85025; 87040; 87502; 87811; 93005

== ENCOUNTER 2024-09-26 21:00 | Emergency (ER) | payer OTHER, SELFPAY ==
[2024-09-26 21:23] VITALS: BP 147/106
--- NOTE | 2024-09-26 21:26 | ED.GENMED ---
ED Provider Triage
<Og Thomas Jr., PA-C - Last Filed: 09/26/24 21:28>
-
Patient seen by provider in Triage?: Seen in Triage
Attestation: A medical screening examination has been initiated by a qualified medical provider. Based on the assessment performed at this time, it has been determined that an emergent medical condition may exist and the patient has been informed
that further medical evaluation and possible additional diagnostic testing may be needed.
HPI: 44-year-old female presenting to the emergency department with a few hours right upper quadrant abdominal pain. Claims that she had similar symptoms in the past and it was a gallstone. Does have reproducible pain to the right upper quadrant
plan for ultrasound and labs for further assessment.
GENERAL: Alert , in no apparent distress
EYE: No visual abnormalities.
NECK: Trachea midline
ENT: No visible abnormalities.
LUNGS: No acute respiratory distress
NEUROLOGICAL: Alert and oriented
SKIN: Skin intact. No visible changes.
MUSCULOSKELETAL: Moving extremities normally
PSYCH: Normal and appropriate interaction.
This is a medical evaluation conducted in person to initiate diagnostic evaluation and provide initial therapeutics. Please see further documentation by the treating clinician.
History of Present Illness
<Og Thomas Jr., PA-C - Last Filed: 09/26/24 21:28>
General
Chief Complaint: Abdominal Pain
Time Seen by Provider: 09/27/24 01:23
<Mena Bernard DO - Last Filed: 09/27/24 07:43>
History of Present Illness
History of Present Illness:
44-year-old female with history of high blood pressure and hyperlipidemia presenting to the emergency department for upper abdominal pain. Patient reports symptoms started prior to arrival. She reports issues with her gallbladder in the past,
thought that she was having a 'gallbladder attack'. Pain is in the right upper quadrant of the abdomen with the right shoulder. Denies vomiting or changes in her stool. She reports she feels bloated. Pain is radiating across her abdomen.
Reports history of appendectomy in the past as well as uterine cyst removal. Denies associated chest pain or difficulty breathing. Reports that she has on sat down for weight loss, however has not had any medication reactions. Denies fever or
sick contacts. Denies additional acute medical complaints
Past History
<Og Thomas Jr., PA-C - Last Filed: 09/26/24 21:28>
Past History
ED Past Medical History: HTN, Valvular disease (mild mitrla valve regurgitation) and Other (Migraines)
ED Past Surgical History: Appendectomy
Social History
Tobacco: Non-smoker
Alcohol: Occasional
Personal:
Living: with family
Employment: Employed
Family History
Family History: Hypertension; Negative Diabetes, Early CAD, CAD, Asthma or Cancer
Phy Exam
<Mena Bernard DO - Last Filed: 09/27/24 07:43>
Physical Exam
Physical Exam:
General: Well-appearing, no clinical signs of dehydration, nontoxic and in no acute distress
HEENT: protecting airway
Neck: appears supple
CV: Normal heart rate, regular rhythm, no evidence of cyanosis
Resp: No accessory muscle use, no increased work of breathing, lungs clear to auscultation bilaterally
Abd: Soft and non-distended, generalized tenderness to the abdomen, most prominent in the right upper quadrant, epigastric, left lower quadrant. No rebound or guarding
Extremities: No deformities, no swelling, no erythema, pulses and sensation intact
Neuro: alert, no focal neurologic deficit
: deferred
Rectal: deferred
Psych: Normal affect
Skin: Intact
Course
<Og Thomas Jr., PA-C - Last Filed: 09/26/24 21:28>
Orders/Labs/Results
Orders:
Orders
09/26/24 21:25
Test Result ONCE
US Abdomen Complete/Upper Urgent
Comment:
Reason For Exam: ruq pain
09/26/24 21:44
Complete Blood Count/With Diff Urgent
Comprehensive Metabolic Panel Urgent
Lipase Urgent
, Serum Qualitative Screen [HCG, Serum Qualitative Screen] Urgent
09/26/24 21:50
Urinalysis Reflex To Culture Urgent
Date Specimen was Collected: 09/26/24
Time Specimen was Collected: 21:48
Urine Microscopic Reflex Cult Urgent
09/27/24 00:40
EKG [Electrocardiogram (*1)] Urgent
Reason for Study: Abdominal Pain
EKG- Treatment ONCE
09/27/24 02:01
Famotidine [Pepcid] 20 mg PO NOW STA
Mag Hydrox/Al Hydrox/Simeth [Maalox] 30 ml PO NOW STA
09/27/24 02:02
CT Abd/pel Without Iv Or Oral Urgent
Comment:
Reason For Exam: generalized pain
Abnormal Lab Results
09/26/24 09/26/24
21:44 21:50
MCV 75.9 L fL
(81.0-99.0)
MCH 25.2 L pg
(27.0-31.0)
RDW 17.0 H %
(11.5-14.5)
MPV 10.5 H fL
(7.4-10.4)
Sodium 134 L mmol/L
(135-145)
BUN 19 H mg/dl
(7-17)
Urine Ketones Trace A
(Negative)
Leukocyte Esterase Rfl Trace A
(Negative)
09/26/24 21:44
09/26/24 21:44
Vital Signs
Initial and Last Documented VS:
Initial Vital Signs
Temp Pulse BP Pulse Ox
98.3 F 85 147/106 99
09/26/24 21:23 09/26/24 21:23 09/26/24 21:23 09/26/24 21:23
Last Documented Vital Signs
Temp Pulse Resp BP Pulse Ox
98.3 F 74 16 140/90 98
09/26/24 21:23 09/27/24 01:26 09/27/24 00:39 09/27/24 03:34 09/27/24 01:26
<Mena Bernard DO - Last Filed: 09/27/24 07:43>
Orders/Labs/Results
Orders:
Orders
09/26/24 21:25
Test Result ONCE
US Abdomen Complete/Upper Urgent
Comment:
Reason For Exam: ruq pain
09/26/24 21:44
Complete Blood Count/With Diff Urgent
Comprehensive Metabolic Panel Urgent
Lipase Urgent
, Serum Qualitative Screen [HCG, Serum Qualitative Screen] Urgent
09/26/24 21:50
Urinalysis Reflex To Culture Urgent
Date Specimen was Collected: 09/26/24
Time Specimen was Collected: 21:48
Urine Microscopic Reflex Cult Urgent
09/27/24 00:40
EKG [Electrocardiogram (*1)] Urgent
Reason for Study: Abdominal Pain
EKG- Treatment ONCE
09/27/24 02:01
Famotidine [Pepcid] 20 mg PO NOW STA
Mag Hydrox/Al Hydrox/Simeth [Maalox] 30 ml PO NOW STA
09/27/24 02:02
CT Abd/pel Without Iv Or Oral Urgent
Comment:
Reason For Exam: generalized pain
Abnormal Lab Results
09/26/24 09/26/24
21:44 21:50
MCV 75.9 L fL
(81.0-99.0)
MCH 25.2 L pg
(27.0-31.0)
RDW 17.0 H %
(11.5-14.5)
MPV 10.5 H fL
(7.4-10.4)
Sodium 134 L mmol/L
(135-145)
BUN 19 H mg/dl
(7-17)
Urine Ketones Trace A
(Negative)
Leukocyte Esterase Rfl Trace A
(Negative)
09/26/24 21:44
09/26/24 21:44
Vital Signs
Initial and Last Documented VS:
Initial Vital Signs
Temp Pulse BP Pulse Ox
98.3 F 85 147/106 99
09/26/24 21:23 09/26/24 21:23 09/26/24 21:23 09/26/24 21:23
Last Documented Vital Signs
Temp Pulse Resp BP Pulse Ox
98.3 F 74 16 140/90 98
09/26/24 21:23 09/27/24 01:26 09/27/24 00:39 09/27/24 03:34 09/27/24 01:26
<Mena Bernard, DO - Last Filed: 09/27/24 07:43>
MDM/Problems Addressed
MDM/Problems Addressed:
44-year-old female with history of hypertension presenting for upper abdominal pain. Vital signs on arrival are significant for mild hypertension.
On exam patient is resting comfortably, no acute distress, slightly uncomfortable secondary to pain. Initial differential consideration cholelithiasis versus cholecystitis given prior history of bladder issues. Prior to my assessment patient had
laboratory analysis and right upper quadrant ultrasound imaging. Ultrasound without acute pathology or indication of gallbladder disease. Labs unremarkable without leukocytosis, normal lipase, without concern for pancreatitis. Patient does note
that she has had issues with uterine cysts, however pain did focal to the lower abdomen with lower suspicion for pathology. Urine without any sign of infection. Patient is still complaining of pain, so for this reason, will obtain CT abdominal
imaging. Patient is declining any medications for pain, however would like medications for indigestion. Will administer Maalox and Pepcid
04:00 -CT without acute pathology to explain patient's symptoms. Notes improvement after Maalox and Pepcid. Patient does note that she has been eating a lot of foods that she typically does not eat, and is also on Zepbound. Suspected medication
reaction versus gastritis. Feel stable for discharge. Advised bland diet going forward. Return precautions discussed and patient verbalized understanding
<Mena Bernard DO - Last Filed: 09/27/24 07:43>
*EKG
Interpreted by ED Provider?: Yes
EKG Intrepretation Date: 09/27/24
EKG Intrepretation Time: 02:22
Interpretation: normal
Heart Rate: 70
Rate: normal
Rhythm: sinus
[place]: normal axis
Interval: normal interval
QRS Pattern: normal QRS
Ischemia: non-specific ST changes
*Critical Care Note
Total Time (30-74mins, 75-104mins- exclusive of procedures): Not Applicable
ED Attending Note
<Og Thomas Jr., PA-C - Last Filed: 09/26/24 21:28>
-
Portions of this chart may have been created with voice recognition software.� Occasional wrong word or��sound alike� substitutions may have occurred due to the inherent limitations of voice recognition software.
Discharge Plan
Departure
Patient Disposition: Home (Routine Discharge)
Date of Disposition: 09/27/24
Time of Disposition: 04:20
Patient with high blood pressure during this ER visit?: No
Condition: Good
Discharge Problem:
Gastritis, Abdominal pain
Instructions: Acid Reflux and GERD in Adults (DC), Abdominal Pain, BLOOD PRESSURE
Prescriptions:
New
alum-mag hydroxide-simeth [Maalox Advanced] 200-200-20 mg/5 mL suspension
5 ml PO TID 7 Days Qty: 105 0RF
famotidine [Pepcid] 20 mg tablet
20 mg PO DAILY 30 Days Qty: 30 0RF
No Action
meloxicam 15 mg Tablet
15 mg PO DAILY
propranolol 20 mg Tablet
20 mg PO BID
Nurtec ODT 75 mg Tablet,Disintegrating
75 mg PO DAILYPRN PRN (Reason: mirgraine)
Patient Comments:
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
rosuvastatin 10 mg Tablet
10 mg PO DAILY
Zepbound 10 mg/0.5 mL Pen Injector
10 mg SC QWEEK
Referrals:
UNKNOWN - PT DOES,NOT KNOW [Family Provider] -
Activity Restrictions/Additional Instructions:
You were seen in the emergency department for abdominal pain
You were found to have normal blood work and ultrasound/CT imaging of your abdomen. You are suspected to have inflammation to your stomach
Please follow-up closely with your primary care physician.
Return to the emergency department for any worsening of your symptoms, or any development of chest pain, difficulty breathing, abdominal pain with persistent vomiting and inability to tolerate food or liquid by mouth (concern for dehydration),
weakness, headache or confusion, fever greater than 100.4, or any additional symptoms that are concerning to you.
Thank you for choosing [facility].
Interventions
Interventions:
*Risk Screen - Suicide Last Done: 09/27/24 01:20
*General Assessment Last Done: 09/27/24 01:20
*Neglect/Abuse Screening Last Done: 09/27/24 01:30
ED- Fall Risk Assessment Last Done: 09/27/24 01:20
*ED COVID-19 Vaccine History Last Done: 09/27/24 01:20
*Nursing Disposition Last Done: 09/27/24 04:30
MZ-Hebsmt-Yvrsygqntf Assessment Last Done: 09/27/24 01:20
Discharge Date and Time
Discharge Date/Time: 09/27/24 04:30
Print Language: ALBANIAN
[2024-09-26 21:49] LABS: % Basophils 0.5 % (0-2); % Eosinophils 3.7 % (0-6); % Immature Granulocytes 0.1 % (0-0.5); % Lymphocytes 29.7 % (20.5-51.1); % Monocytes 8.4 % (1.7-9.3); % Neutrophils 57.6 % (42.2-75.2); Absolute Eosinophils 0.3 10^3/uL (0-0.7); Absolute Lymphocytes 2.2 10^3/uL (1.2-3.4); Absolute Monocytes 0.6 10^3/uL (0.1-0.6); Absolute Neutrophils 4.3 10^3/uL (1.4-6.5); Hematocrit 37.1 % (37.0-47.0); Hemoglobin 12.3 g/dL (12.0-16.0); Mean Corp Hgb Conc. 33.2 g/dL (33.0-37.0); Mean Corpuscular Hgb 25.2 pg (27.0-31.0); Mean Corpuscular Volume 75.9 fL (81.0-99.0); Mean Platelet Volume 10.5 fL (7.4-10.4); Nucleated Red Blood Cells % 0 %; Platelet Count 260 10^3/uL (130-400); Red Blood Cell Count 4.89 10^6/uL (4.20-5.40); White Blood Cell Count 7.5 10^3/uL (4.8-10.8)
[2024-09-26 21:58] LABS: Urine Albumin Trace (Neg - Trace); Urine Bilirubin Negative (Negative); Urine Character Clear (Clear); Urine Color Yellow; Urine Glucose Negative (Negative); Urine Ketone Trace (Negative); Urine Leukocyte Trace (Negative); Urine Nitrite Negative (Negative); Urine Occult Blood Negative (Negative); Urine Specific Gravity 1.025 (<1.030); Urine Urobilinogen 1+ (Neg - 1+)
[2024-09-26 22:00] LABS: HCG, Serum Qualitative Screen Negative
[2024-09-26 22:09] LABS: Urine Mucus Many; Urine Squamous Cell >30 /LPF (Few)
[2024-09-26 22:10] LABS: Urine Red Blood Cell 0-2 /HPF (0-2)
[2024-09-26 22:12] LABS: ALT (SGPT) 14 U/L (0-35); AST (SGOT) 21 U/L (14-36); Albumin 4.3 g/dl (3.5-5.0); Alkaline Phosphatase 58 U/L (38-126); Blood Urea Nitrogen 19 mg/dl (7-17); Calcium 9.7 mg/dl (8.4-10.2); Carbon Dioxide 25 mmol/L (22-30); Chloride 100 mmol/L (98-107); Glucose 87 mg/dl (70-99); Lipase 92 U/L (23-300); Potassium 3.6 mmol/L (3.5-5.1); Sodium 134 mmol/L (135-145); Total Bilirubin 0.6 mg/dl (0.2-1.3); Total Protein 7.2 g/dl (6.3-8.2); eGFR > 60.00
[2024-09-27 00:39] VITALS: BP 165/109
[2024-09-27 01:26] VITALS: BP 140/100
[2024-09-27] MEDS: MAALOX 30 ML PO (02:36)
[2024-09-27] MEDS: PEPCID 20 MG PO (02:36)
[2024-09-27 03:34] VITALS: BP 140/90
== END 2024-09-27 04:30 | disposition home or self-care (01) ==
LOC: EMR 21:00
PROVIDERS: Physician Assistant; EMERGENCY PHYSICIAN Student in an Organized Health Care Education/Training Program
DX: K29.70 Gastritis, unspecified, without bleeding (principal); R10.10 Upper abdominal pain, unspecified; I10 Essential (primary) hypertension; E78.5 Hyperlipidemia, unspecified
CPT/HCPCS: 99285; 74176; 76700; 80053; 81003; 81015; 83690; 84703; 85025; 93005

== ENCOUNTER → 2024-12-22 15:24 | Outpatient (REF) | payer OTHER, SELFPAY | LOC: WDC 15:24 | PROVIDERS: ATTENDING PHYSICIAN Obstetrics & Gynecology Gynecology; FAMILY PHYSICIAN Family Medicine | DX: Z12.31 Encounter for screening mammogram for malignant neoplasm of breast (principal) | CPT/HCPCS: 77063; 77067 ==